=== PATIENT | female | born 2000 ===

== ENCOUNTER 2022-03-11 16:57 | Emergency (ER) | payer SELFPAY ==
[2022-03-11 17:01] VITALS: BP 118/72
[2022-03-11] MEDS ORDERED: IBUPROFEN 600 MG TAB PO ONE (19:52)
[2022-03-11] MEDS ORDERED: ACETAMINOPHEN 500 MG TAB PO ONE (19:52)
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
== END 2022-03-11 21:20 | disposition home or self-care (01) ==
LOC: ED 16:57
DX: S93.492A Sprain of other ligament of left ankle, initial encounter (principal); G44.209 Tension-type headache, unspecified, not intractable; Z79.899 Other long term (current) drug therapy; V87.7XXA Person injured in collision between other specified motor vehicles (traffic), initial encounter; Y93.89 Activity, other specified; Y92.488 Other paved roadways as the place of occurrence of the external cause; Y99.8 Other external cause status
CPT/HCPCS: 99283